=== PATIENT | female | born 1990 | race Two or more races ===

== ENCOUNTER 2019-02-17 03:06 | Emergency (ER) | payer OTHER, MEDICAID ==
[~2019-02-17] VITALS: Ht 170.2 cm; Wt 72.6 kg
--- NOTE | 2019-02-17 03:06 | NUR ---
TO BED 2 [facility] C/O SEIZURE WITNESSED BY FAMILY MEMBER PER EMS REPORT/ RECEIVE PT HYPERVENTILATING, TRASHING, CRYING, UNCOOPERATIVE, FAILED ARM DROP. PT AAOX1, NO ACUTE DISTRESS NOTED, RESP EVEN AND UNLABORED. ER MD AT BEDSIDE TO EVAL PT. STERNAL RUB DONE BBY ER MD, PT RESPONDED "AWE THAT'S HURTS". PLACE PT ON CARDIAC MONITORING, CONTINUOUS POX. WILL CONTINUE TO MONITOR PT CLOSELY.
--- NOTE | 2019-02-17 03:07 | NUR ---
PLACE PT ON SEIZURE PRECAUTION WITH PADDED SIDE RAILS.
[2019-02-17] MEDS ORDERED: LORAZEPAM INJ 2 MG/ML VIAL ONE (03:13)
[2019-02-17] MEDS ORDERED: AMMONIA NASAL INHALATION 1 EA PACK NAS ONE (03:13)
--- NOTE | 2019-02-17 03:13 | NUR ---
PT CRYING, REFUSES TO ANSWER QUESTION OR FOLLOW SIMPLE COMMANDS. CALL LIGHT WITHIN REACH. WILL CONTINUE TO MONITOR PT CLOSELY.
--- NOTE | 2019-02-17 03:19 | NUR ---
PT MEDICATED ORDERED.
[2019-02-17] MEDS ORDERED: LORAZEPAM INJ 2 MG/ML VIAL IM ONE (03:30)
--- NOTE | 2019-02-17 03:49 | NUR ---
PT ASLEEP, NO ACUTE DISTRESS NOTED, RESP EVEN AND UNLABORED. CALL LIGHT WITHIN REACH.
--- NOTE | 2019-02-17 04:48 | NUR ---
PT ASLEEP, NO ACUTE DISTRESS NOTED, RESP EVEN AND UNLABORED. CALL LIGHT WITHIN REACH. PT REMIANS ON CARDIAC MONITORING, CONTINUOUS POX. WILL CONTINUE TO MONITOR PT CLOSELY.
--- NOTE | 2019-02-17 05:59 | NUR ---
PT ASLEEP, NO ACUTE DISTRESS NOTED, RESP EVEN AND UNLABORED. CALL LIGHT WITHIN REACH.
--- NOTE | 2019-02-17 07:07 | NUR ---
PT AAOX4 NO ACUTE DISTRESS NOTED, RESP EVEN AND UNLABORED. PT UNABLE TO RECALL HUSBANDS PHONE NUMBER FOR DISCHARGE. WILL ENDORSE TO AM SHIFT.
--- NOTE | 2019-02-17 07:18 | NUR ---
REPORT GIVEN TO AM SHIFT ILEANA MAYA
--- NOTE | 2019-02-17 08:55 | NUR ---
Patient arousable, assisted to restroom. Offered food tray.
--- NOTE | 2019-02-17 10:11 | NUR ---
CAME, STATED PATIENT IS NON-COMPLIANT WITH SEIZURE MEDICATIONS, STATED THEY HAVE MEDICATIONS AT HOME. EXPLAINED RISKS OF MISSING MEDICATIONS. PATIENT A/OX3, STILL SLEEPY, BUT VERBALLY RESPONSIVE. PATIENT ABLE TO AMBULATE WITH STEADY GAIT. NO DISTRESS NOTED. VSS. Patient discharged to home in stable condition. Written and verbal after care instructions given. Patient verbalizes understanding of instruction. AT BEDSIDE, DROVE THE PATIENT HOME.
[2019-02-17 10:12] VITALS: BP 105/81
== END 2019-02-17 10:13 | disposition home or self-care (01) ==
LOC: ER 03:14
DX: F41.0 Panic disorder [episodic paroxysmal anxiety] (principal); R45.1 Restlessness and agitation; G40.909 Epilepsy, unspecified, not intractable, without status epilepticus
CPT/HCPCS: 96372; 99284; J2060